=== PATIENT | male | born 1990 | race Hispanic/Latino ===

== ENCOUNTER 2016-09-18 23:01 | Emergency (ER) | payer MEDICARE ==
[2016-09-18 23:14] VITALS: BP 136/89
== END 2016-09-19 02:40 | disposition left against medical advice (07) ==
LOC: ED 23:01
DX: S30.871A Other superficial bite of abdominal wall, initial encounter (principal); T63.301A Toxic effect of unspecified spider venom, accidental (unintentional), initial encounter; Y93.89 Activity, other specified; Y99.9 Unspecified external cause status; Y92.89 Other specified places as the place of occurrence of the external cause; Z53.21 Procedure and treatment not carried out due to patient leaving prior to being seen by health care provider